=== PATIENT | male | born 1980 | race African-American/Black ===

== ENCOUNTER 2016-08-27 18:11 | Emergency (ER) | payer OTHER ==
[2016-08-27 19:28] VITALS: BP 148/76
[2016-08-27] MEDS ORDERED: Cyclobenzaprine TAB* 10 MG PO ONE (20:38)
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
== END 2016-08-27 20:50 | disposition home or self-care (01) ==
LOC: UCEAST 18:11
DX: M54.5 Low back pain (principal); G89.29 Other chronic pain; F17.210 Nicotine dependence, cigarettes, uncomplicated
CPT/HCPCS: 99212; A9270-GY; G0463

== ENCOUNTER 2016-10-10 18:17 | Emergency (ER) | payer OTHER ==
[2016-10-10 18:45] VITALS: BP 124/74
--- NOTE | 2016-10-10 19:42 | UC ---
Respiratory Complaint HPI - HPI Summary HPI Summary: 3-4 DAYS OF COUGH, CONGESTION, ST AND FATIGUE. NO FEVER, N/V/D. COUGH IS KEEPING HIM UP AT NIGHT. IS A SMOKER. - History of Current Complaint Chief Complaint: UCRespiratory Stated Complaint: COUGH Time Seen by Provider: 10/10/16 19:21 Hx Obtained From: Patient Onset/Duration: Gradual Onset, Lasting Days, Still Present Timing: Constant Severity Initially: Moderate Severity Currently: Moderate Pain Intensity: 0 Pain Scale Used: 0-10 Numeric Character: Cough: Nonproductive Aggravating Factors: Nothing Alleviating Factors: Nothing Associated Signs And Symptoms: Positive: Nasal Congestion, Hoarseness - Allergies/Home Medications Allergies/Adverse Reactions: Allergies Allergy/AdvReac Type Severity Reaction Status Date / Time Lactose Intolerance (GI) Allergy GI Upset Verified 08/27/16 19:28 PMH/Surg Hx/FS Hx/Imm Hx Previously Healthy: Yes - Surgical History Surgical History: Yes Surgery Procedure, Year, and Place: LEG SURGERY age approx 6 years - Family History Known Family History: Positive: Hypertension, Diabetes - Social History Alcohol Use: None Substance Use Type: None Smoking Status (MU): Light Every Day Tobacco Smoker Type: Cigarettes Amount Used/How Often: 4-5CIG /DAY Length of Time of Smoking/Using Tobacco: 22YR Have You Smoked in the Last Year: Yes Review of Systems Constitutional: Fatigue ENT: Sore Throat, Nasal Discharge Respiratory: Cough Cardiovascular: Negative Gastrointestinal: Negative All Other Systems Reviewed And Are Negative: Yes Physical Exam Triage Information Reviewed: Yes Appearance: Well-Appearing, No Pain Distress, Well-Nourished Vital Signs: Initial Vital Signs Temp 98.7 F 10/10/16 18:43 Pulse 72 10/10/16 18:43 Resp 18 10/10/16 18:43 BP 124/74 10/10/16 18:43 Pulse Ox 100 10/10/16 18:43 Vital Signs Reviewed: Yes Eyes: Positive: Conjunctiva Clear ENT: Positive: Hearing grossly normal, Pharyngeal erythema, TMs normal Neck: Positive: Supple, Nontender, No Lymphadenopathy Respiratory: Positive: Lungs clear, Normal breath sounds, No respiratory distress, No accessory muscle use, Other: - DRY HACKING COUGH Cardiovascular Exam: Normal Abdomen Description: Positive: Soft Musculoskeletal: Positive: No Edema Neurological: Positive: Alert Psychological: Positive: Age Appropriate Behavior Skin: Negative: rashes UC Diagnostic Evaluation - Laboratory O2 Sat by Pulse Oximetry: 100 Respiratory Course/Dx - 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
[2016-10-10] MEDS ORDERED: guaiFENesin/CODIEN 100MG-10MG* 5 ML UDC PO ONE (19:54)
== END 2016-10-10 20:05 | disposition home or self-care (01) ==
LOC: UCEAST 18:17
DX: J20.9 Acute bronchitis, unspecified (principal); F17.210 Nicotine dependence, cigarettes, uncomplicated
CPT/HCPCS: 99212; A9270-GY; G0463

== ENCOUNTER 2017-08-01 15:07 | Emergency (ER) | payer SELFPAY ==
--- NOTE | 2017-08-01 16:06 | RAD ---
Indication: Left fourth finger injury. 3 views of left fourth digit demonstrates comminuted fracture of the distal half of the fourth digit. Proximal and distal interphalangeal joint is intact. IMPRESSION: Comminuted fracture distal tuft of the fourth digit.
[2017-08-01] MEDS ORDERED: cefTRIAXone VIAL(*) 1,000 MG VIAL IM ONE (16:42)
[2017-08-01] MEDS ORDERED: Lidocaine 1% MPF* 2 ML VIAL INJ ONE (16:43)
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
[2017-08-01 17:51] VITALS: BP 130/72
== END 2017-08-01 17:43 | disposition home or self-care (01) ==
LOC: UCEAST 15:07
DX: S62.665A Nondisplaced fracture of distal phalanx of left ring finger, initial encounter for closed fracture (principal); W31.89XA Contact with other specified machinery, initial encounter; Y93.89 Activity, other specified; Y92.89 Other specified places as the place of occurrence of the external cause; Y99.0 Civilian activity done for income or pay; F17.210 Nicotine dependence, cigarettes, uncomplicated
CPT/HCPCS: 73140; 99212; G0463; J0696

== ENCOUNTER 2019-04-06 14:36 | Emergency (ER) | payer SELFPAY ==
[2019-04-06 15:08] VITALS: BP 124/67
--- NOTE | 2019-04-06 16:39 | UC ---
Hand/Wrist HPI - HPI Summary HPI Summary: 39-year-old male who hit his left him on a counter 3 weeks ago. He's had some pain in the distal thumb and has been wearing a splint. He developed a contusion to the distal thumb 2 days after the injury and today has continued pain of the thumb. - History Of Current Complaint Chief Complaint: UCUpperExtremity Stated Complaint: LEFT THUMB COMPLAINT Time Seen by Provider: 04/06/19 16:27 Hx Obtained From: Patient ?: No Onset/Duration: Sudden Onset Severity Initially: Mild Severity Currently: None Pain Intensity: 3 Character Of Pain: Dull, Aching Alleviating Factor(s): Rest Associated Signs And Symptoms: Positive: Swelling, Bruising - Mild swelling with bruising to the distal left thumb. - Allergies/Home Medications Allergies/Adverse Reactions: Allergies Allergy/AdvReac Type Severity Reaction Status Date / Time lactose Allergy GI Upset Verified 04/06/19 15:08 PMH/Surg Hx/FS Hx/Imm Hx Previously Healthy: Yes - Surgical History Surgical History: Yes Surgery Procedure, Year, and Place: LEG SURGERY A CHILD - Family History Known Family History: Positive: Hypertension, Diabetes - Social History Alcohol Use: None Substance Use Type: None Smoking Status (MU): Current Every Day Smoker Type: Cigarettes Amount Used/How Often: 1 PACK Q2-3 DAYS Length of Time of Smoking/Using Tobacco: 22YR Have You Smoked in the Last Year: Yes Review of Systems All Other Systems Reviewed And Are Negative: Yes Skin: Positive: Bruising - Patient has bruising to the distal left thumb with fluctuance under the skin distally. No signs of infection. Is Patient Immunocompromised?: No Physical Exam Triage Information Reviewed: Yes Appearance: Well-Appearing, No Pain Distress, Well-Nourished Vital Signs: Initial Vital Signs Temp 98.2 F 04/06/19 15:03 Pulse 86 04/06/19 15:03 Resp 16 04/06/19 15:03 BP 124/67 04/06/19 15:03 Pulse Ox 100 04/06/19 15:03 Vital Signs Reviewed: Yes Musculoskeletal Exam: Normal Neurological Exam: Normal Psychological Exam: Normal Skin: Positive: Other - The distal left thumb has what appears to be a hematoma with mild tenderness on palpation but fluctuant. No Evidence of infection. Full range of motion. Hand/Wrist Course/Dx - Course Course Of Treatment: Left thumb x-ray:FINDINGS: The distal tuft of the left thumb is mostly demineralized. More proximally the visualized bones appear to be intact and anatomically aligned. IMPRESSION: Demineralization of the distal tuft of the left thumb. This could be related to prior trauma. Otherwise the differential includes psoriasis, vascular disease (Raynaud's phenomenon), hyperparathyroidism or scleroderma. If the patient's symptoms persist, follow- up imaging is recommended. The patient had his own thumb splint and he is to keep that on and to call the orthopedist first thing in the morning for further care. He is to elevate as much as possible. He can take Tylenol and Motrin for pain. - Differential Dx/Diagnosis Provider Diagnosis: Thumb injury Discharge ED - Sign-Out/Discharge Documenting (check all that apply): Patient Departure All imaging exams completed and their final reports reviewed: Yes - Discharge Plan Condition: Fair Disposition: HOME Patient Education Materials: Finger Sprain (ED) Referrals: Luis Pineda MD [Medical Doctor] - No Primary Care Phys,NOPCP [Primary Care Provider] - Sierra Monk MD [Medical Doctor] - Additional Instructions: Elevate as much as possible, Tylenol or Motrin for pain. Keep the splint on. Call the orthopedist tomorrow and make an appointment to be seen in the next day or 2. - Billing Disposition and Condition Condition: FAIR Disposition: Home - Attestation Statements Provider Attestation: I was available for consult. This patient was seen by the JUVENTINO. The patient was presented to and care discussed with me. Patient was not seen by or examined by me -Brooks Henning MD
== END 2019-04-06 17:14 | disposition home or self-care (01) ==
LOC: UCCORT 14:36
DX: S69.92XA Unspecified injury of left wrist, hand and finger(s), initial encounter (principal); M89.8X4 Other specified disorders of bone, hand; F17.210 Nicotine dependence, cigarettes, uncomplicated; Z91.011 Allergy to milk products; W22.8XXA Striking against or struck by other objects, initial encounter; Y92.9 Unspecified place or not applicable
CPT/HCPCS: 99211; G0463